=== PATIENT | male | born 1960 | race Caucasian/White ===

== ENCOUNTER 2020-01-02 18:26 | Inpatient (IN) | payer MEDICAID ==
[~2020-01-02] VITALS: Ht 182.9 cm; Wt 127.3 kg
[~2020-01-02 18:26] MED LIST: HYDR25TA6 PO
--- NOTE | 2020-01-02 18:35 | NUR ---
PT BIB CO OF LLE REDNESS SWELLING AND PAIN. LEG IS VERY RED AND WARM TO THE TOUCH. PT SAYS THIS HAS BEEN GOING ON FOR ABOUT A WEEK. PT DENIES COUGH OR SOB
[2020-01-02] MEDS ORDERED: OXYcodone/APAP 10/325MG TABLET ONE (18:57)
[2020-01-02] MEDS ORDERED: OXYcodone/APAP 10/325MG TABLET PO ONE (19:00)
--- NOTE | 2020-01-02 19:02 | NUR ---
PT MEDICATED PER MAR
[2020-01-02 19:29] LABS: BASOPHILS # (AUTO) 0.01 x10^3/uL (0-0.1); BASOPHILS % (AUTO) 0 % (0-1); EOSINOPHILS # (AUTO) 0.03 x10^3/uL (0-0.4); EOSINOPHILS % (AUTO) 0 % (1-7); LYMPHOCYTES # (AUTO) 1.49 x10^3/uL (1-3.4); LYMPHOCYTES % (AUTO) 12 % (22-44); MD NO; MEAN CORPUSCULAR HEMOGLOBIN 29.2 pg (27.5-34.5); MEAN CORPUSCULAR HGB CONC 33.8 g/dL (33.2-36.2); MEAN CORPUSCULAR VOLUME 86.3 fL (81-97); MEAN PLATELET VOLUME 8.8 fL (7.4-10.4); MONOCYTES # (AUTO) 0.79 x10^3/uL (0.2-0.8); MONOCYTES % (AUTO) 6 % (2-9); NEUTROPHILS # (AUTO) 10.68 x10^3/uL (1.8-6.8); NEUTROPHILS % (AUTO) 82 % (42-75); PLATELET COUNT 185 x10^3/uL (130-400); RED BLOOD COUNT 5.25 x10^6/uL (4.38-5.82); RED CELL DISTRIBUTION WIDTH 13.8 % (9.4-14.8)
[2020-01-02 19:37] LABS: ALANINE AMINOTRANSFERASE 34 U/L (12-78); ALBUMIN 3.1 g/dL (3.4-5.0); ANION GAP 7 mmol/L (5-15); CALCIUM 8.5 mg/dL (8.5-10.1); CHLORIDE 105 mmol/L (98-107); CREATININE 1.04 mg/dL (0.7-1.3)
[2020-01-02 19:39] LABS: ALKALINE PHOSPHATASE 63 U/L (45-117); BILIRUBIN,TOTAL 0.4 mg/dL (0.2-1.0); TOTAL PROTEIN 8.2 g/dL (6.4-8.2)
[2020-01-02] MEDS ORDERED: VANCOMYCIN PER PHARMACY MC PRN ×2 (20:00→21:30)
[2020-01-02] MEDS ORDERED: VANCOMYCIN 2,500 MG in SODIUM CHLORIDE 0.9% 500 ML IV ONE (20:00)
[2020-01-02] MEDS ORDERED: CEFTRIAXONE PMX 1GM/50ML 50 ML IV ONE (20:00)
[2020-01-02] MEDS ORDERED: CEFTRIAXONE PMX 1GM/50ML 50 ML ONE (20:01)
--- NOTE | 2020-01-02 20:36 | NUR ---
PT RESTING IN GURNEY. WATCHING TV. REPORTS PAIN IMPROVEMENT.
[2020-01-02] MEDS ORDERED: POLYETHYLENE GLYCOL 17 GM PACKET PO PRN (21:30)
[2020-01-02] MEDS ORDERED: ONDANSETRON ODT 4 MG PO PRN (21:30)
[2020-01-02] MEDS ORDERED: POTASSIUM CHLORIDE 20 MEQ TAB.ER.PRT PO ONE (21:30)
[2020-01-02] MEDS ORDERED: BISACODYL 10 MG SUPP PR PRN (21:30)
[2020-01-02] MEDS ORDERED: ACETAMINOPHEN 325 MG TABLET PO PRN (21:30)
[2020-01-02 21:41] VITALS: BP 104/68
[2020-01-02 22:08] VITALS: BP 104/68
[2020-01-02] MEDS: OXYcodone IR 5MG TABLET PO PRN (22:48)
[2020-01-02] MEDS: HEPARIN 5,000 UNITS/ML, 1ML SQ SCH (22:50)
[2020-01-02] MEDS: NICOTINE 7 MG/24 HR PATCH.TD24 TD SCH (22:50)
[2020-01-02] MEDS: AMPICILLIN/SULBACTAM 3 GM in SODIUM CHLORIDE 0.9% 100 ML IV SCH (22:51)
[2020-01-02] MEDS: NS + 20MEQ KCL 1,000 ML IV SCH (22:51)
[2020-01-02] MEDS ORDERED: LISI10TA2 PO (23:23)
[2020-01-02] MEDS ORDERED: ATOR20TA86 PO (23:25)
[2020-01-03 00:22] VITALS: BP 101/64
[2020-01-03] MEDS ORDERED: PHARMACOKINETIC CONSULTATION MC ONE (01:00)
[2020-01-03] MEDS ORDERED: PHARMACOKINETIC MONITORING MC PRN (01:00)
[2020-01-03] MEDS: AMPICILLIN/SULBACTAM 3 GM in SODIUM CHLORIDE 0.9% 100 ML IV SCH (04:36)
[2020-01-03 05:21] LABS: ANION GAP 7 mmol/L (5-15); CALCIUM 8.4 mg/dL (8.5-10.1); CHLORIDE 109 mmol/L (98-107); CREATININE 0.74 mg/dL (0.7-1.3)
[2020-01-03 05:28] LABS: BASOPHILS % (AUTO) 0 % (0-1); EOSINOPHILS % (AUTO) 1 % (1-7); LYMPHOCYTES # (AUTO) 1.49 x10^3/uL (1-3.4); LYMPHOCYTES % (AUTO) 16 % (22-44); MD NO; MEAN CORPUSCULAR HEMOGLOBIN 29.3 pg (27.5-34.5); MEAN CORPUSCULAR HGB CONC 33.4 g/dL (33.2-36.2); MEAN CORPUSCULAR VOLUME 87.9 fL (81-97); MEAN PLATELET VOLUME 8.6 fL (7.4-10.4); MONOCYTES % (AUTO) 10 % (2-9); NEUTROPHILS # (AUTO) 7.03 x10^3/uL (1.8-6.8); NEUTROPHILS % (AUTO) 74 % (42-75); PLATELET COUNT 170 x10^3/uL (130-400); RED BLOOD COUNT 4.92 x10^6/uL (4.38-5.82); RED CELL DISTRIBUTION WIDTH 13.7 % (9.4-14.8)
[2020-01-03] MEDS: OXYcodone IR 5MG TABLET PO PRN ×4 (06:11→20:16)
[2020-01-03] MEDS: HEPARIN 5,000 UNITS/ML, 1ML SQ SCH ×3 (06:11→23:00)
[2020-01-03 07:56] VITALS: BP 120/76
[2020-01-03] MEDS: NS + 20MEQ KCL 1,000 ML IV SCH (08:25)
[2020-01-03] MEDS: HYDROCHLOROTHIAZIDE 25 MG TABLET PO SCH (08:26)
[2020-01-03] MEDS: SENNA/DOCUSATE TABLET PO SCH (08:26)
[2020-01-03] MEDS ORDERED: FUROSEMIDE 20 MG/2 ML IV ONE (11:00)
[2020-01-03] MEDS: CEFAZOLIN PMX 2GM/50ML 50 ML IVPB SCH ×2 (11:12→18:23)
[2020-01-03 13:36] VITALS: BP 122/76
[2020-01-03] MEDS ORDERED: VANCOMYCIN 2,000 MG in SODIUM CHLORIDE 0.9% 500 ML IV SCH (15:00)
[2020-01-03] MEDS: NICOTINE 7 MG/24 HR PATCH.TD24 TD SCH (20:17)
[2020-01-03 20:58] VITALS: BP 115/68
[2020-01-03] MEDS: MICONAZOLE CRM 2%, 15GM TP SCH (21:20)
[2020-01-04 02:26] VITALS: BP 126/86
[2020-01-04] MEDS: CEFAZOLIN PMX 2GM/50ML 50 ML IVPB SCH ×3 (02:26→18:28)
[2020-01-04 06:19] LABS: BASOPHILS # (AUTO) 0.02 x10^3/uL (0-0.1); BASOPHILS % (AUTO) 0 % (0-1); EOSINOPHILS # (AUTO) 0.09 x10^3/uL (0-0.4); EOSINOPHILS % (AUTO) 1 % (1-7); LYMPHOCYTES # (AUTO) 1.44 x10^3/uL (1-3.4); LYMPHOCYTES % (AUTO) 20 % (22-44); MD NO; MEAN CORPUSCULAR HEMOGLOBIN 28.9 pg (27.5-34.5); MEAN CORPUSCULAR HGB CONC 33.4 g/dL (33.2-36.2); MEAN CORPUSCULAR VOLUME 86.5 fL (81-97); MEAN PLATELET VOLUME 8.7 fL (7.4-10.4); MONOCYTES % (AUTO) 11 % (2-9); NEUTROPHILS # (AUTO) 4.99 x10^3/uL (1.8-6.8); NEUTROPHILS % (AUTO) 68 % (42-75); PLATELET COUNT 193 x10^3/uL (130-400); RED CELL DISTRIBUTION WIDTH 13.4 % (9.4-14.8)
[2020-01-04 06:24] LABS: ANION GAP 5 mmol/L (5-15); CALCIUM 9.1 mg/dL (8.5-10.1); CHLORIDE 106 mmol/L (98-107)
[2020-01-04 06:25] LABS: CREATININE 0.86 mg/dL (0.7-1.3)
[2020-01-04] MEDS: HEPARIN 5,000 UNITS/ML, 1ML SQ SCH ×3 (06:28→22:43)
[2020-01-04 07:45] VITALS: BP 116/75
[2020-01-04] MEDS: MICONAZOLE CRM 2%, 15GM TP SCH ×2 (07:54→20:42)
[2020-01-04] MEDS: HYDROCHLOROTHIAZIDE 25 MG TABLET PO SCH (07:55)
[2020-01-04] MEDS: SENNA/DOCUSATE TABLET PO SCH (07:55)
[2020-01-04] MEDS: TERBINAFINE 250MG TABLET PO SCH (07:56)
[2020-01-04] MEDS: OXYcodone IR 5MG TABLET PO PRN ×4 (07:56→22:43)
[2020-01-04 15:10] VITALS: BP 113/75
[2020-01-04 19:19] VITALS: BP 96/63
[2020-01-04] MEDS: NICOTINE 7 MG/24 HR PATCH.TD24 TD SCH (20:42)
[2020-01-05 01:26] VITALS: BP 111/71
[2020-01-05] MEDS: CEFAZOLIN PMX 2GM/50ML 50 ML IVPB SCH (03:18)
[2020-01-05] MEDS: HEPARIN 5,000 UNITS/ML, 1ML SQ SCH (06:20)
[2020-01-05 07:00] VITALS: BP 109/69
[2020-01-05] MEDS: TERBINAFINE 250MG TABLET PO SCH (07:30)
[2020-01-05] MEDS: SENNA/DOCUSATE TABLET PO SCH (07:30)
[2020-01-05] MEDS: OXYcodone IR 5MG TABLET PO PRN (07:31)
[2020-01-05] MEDS: HYDROCHLOROTHIAZIDE 25 MG TABLET PO SCH (07:31)
[2020-01-05] MEDS: MICONAZOLE CRM 2%, 15GM TP SCH (09:00)
[2020-01-05] MEDS ORDERED: CEPHALEXIN 500 MG CAPSULE PO SCH (09:30)
[2020-01-05] MEDS ORDERED: MICO14CR TP (12:14)
[2020-01-05] MEDS ORDERED: CEPH-376 PO (12:14)
[2020-01-05] MEDS ORDERED: TERB250T14 PO (12:14)
[2020-01-05 13:36] VITALS: BP 122/77
== END 2020-01-05 14:45 | disposition home or self-care (01) | DRG 872 ==
LOC: ED 18:58 → EDIP 20:53 → 3N 21:37
PROVIDERS: ATTEND Family Medicine
DX: A41.9 Sepsis, unspecified organism (principal); L03.116 Cellulitis of left lower limb; E87.1 Hypo-osmolality and hyponatremia; B35.1 Tinea unguium; E66.01 Morbid (severe) obesity due to excess calories; E78.5 Hyperlipidemia, unspecified; E87.6 Hypokalemia; F17.210 Nicotine dependence, cigarettes, uncomplicated; I10 Essential (primary) hypertension; I27.20 Pulmonary hypertension, unspecified; Z68.38 Body mass index [BMI] 38.0-38.9, adult
CPT/HCPCS: 36415; 80048; 80053; 83605; 85025; 87040; 93306; G0378; J0295; J0690; J0696; J1644; J3370; J3480; J1940; J7040